=== PATIENT | female | born 1945 | race Caucasian/White ===

== ENCOUNTER 2023-05-31 20:45 | Emergency (ER) | payer MEDICARE, OTHER, SELFPAY ==
[2023-05-31 20:56] VITALS: BP 150/90; PULSE 92; RESP 18; TEMP 36.8; O2SAT 96; BMI 34.7
[2023-05-31] MEDS: ONDANSETRON 4 MG/2 ML INJ IV (21:31)
[2023-05-31 21:35] LABS: Add Manual Diff / Slide Review NO; Basophils Absolute Auto 0 /uL (0-100); Basophils Percent Auto 0.3 % (0-2); Eosinophils Absolute Auto 300 /uL (0-450); Eosinophils Percent Auto 2.8 % (2-4); Hematocrit 45.6 % (36-46); Hemoglobin 15.3 g/dL (12.0-16.0); Lymphocytes Absolute Auto 1800 /uL (1100-4500); Lymphocytes Percent Auto 17.4 % (25-40); Mean Corpuscular HGB Conc 33.5 % (30-36); Mean Corpuscular Hemoglobin 29.9 PG (26-34); Mean Corpuscular Volume 89.2 fL (80-100); Monocytes Absolute Auto 1000 /uL (0-900); Monocytes Percent Auto 9.3 % (3-14); Neutrophils Absolute Auto 7400 /uL (1500-7000); Neutrophils Percent Auto 70.2 % (50-75); Platelet Count 124 X10^3/uL (150-400); Red Blood Cell Count 5.11 X10^6/uL (4.0-5.2); Red Cell Distribution Width 13.4 % (11.6-14.8); White Blood Cell Count 10.5 X10^3/uL (4.5-11.0)
[2023-05-31 21:47] LABS: Lactate (Lactic Acid) 2.1 mmol/L (0.7-2.1)
[2023-05-31 21:49] LABS: Alanine Aminotransferase 29 IU/L (<35); Albumin 4.4 g/dL (3.5-5.0); Albumin Globulin Ratio 1.4 (1.0-2.8); Alkaline Phosphatase 77 U/L (38-126); Aspartate Aminotransferase 46 IU/L (14-36); BUN Creatinine Ratio 29.1 (6-22); Bilirubin Total 0.8 mg/dL (0.2-1.3); Blood Urea Nitrogen 16 mg/dL (7-17); Calcium 10.2 mg/dL (8.4-10.2); Carbon Dioxide 22 mmol/L (22-32); Chloride 108 mmol/L (98-107); Estimated Glomerular Filt Rate > 60 mL/min (>60); Globulin 3.2 g/dL (1.7-4.1); Glucose 123 mg/dL (80-110); HEMOLYSIS 40 (0-50); Lipase 104 U/L (23-300); Potassium 3.7 mmol/L (3.4-5.1); Sodium 138 mmol/L (137-145); Total Protein 7.6 g/dL (6.3-8.2)
[2023-05-31 22:05] LABS: Procalcitonin 0.06 ng/mL (<0.5)
[2023-05-31 22:10] LABS: Bacteria Urine Occasional (0-1); Culture Indicated Urine Specimen Cultured; Mucus Urine 1+ (Negative); RBC Urine 0-1/HPF (0-5/HPF); Squamous Epithelial Cell Urine 1-5 /HPF (0-5/HPF); Urine Volume 10mL (spun); WBC Urine 10-30/HPF (0-5/HPF)
[2023-05-31 23:06] LABS: Reflexed Lactate in 2 Hours Y
--- NOTE | 2023-06-01 01:35 | ED.GENADULT ---
HPI - General Adult General Chief complaint: Dental/Oral Stated complaint: boil on gums/states has Jesus Time Seen by Provider: 05/31/23 21:23 Source: patient Mode of arrival: Ambulatory History of Present Illness HPI narrative: 78-year-old woman with a history of Crohn's disease on immune modulating therapy currently visiting from [facility] presents complaining of general malaise, mild abdominal tenderness, nausea, fevers. She had a dental procedure where the gum was accidentally scraped a couple of days ago and she is concerned that that may be infected. She notes that nausea is not typically part of her Crohn's symptoms. She has not complaining cough, chest pain, palpitations or headache. She presents today looking for reassurance that there is no sign of bacterial infection in light of the skyrisi that she takes for her Crohn's disease. Related Data Allergies Allergy/AdvReac Type Severity Reaction Status Date / Time infliximab [From Remicade] AdvReac Verified 05/31/23 20:55 Review of Systems Review of Systems Narrative: Pertinent positive and negative findings as per HPI Patient History Medical History (Updated 06/01/23 @ 01:50 by Thao Callaway MD) Crohn's disease Social History Smoking Status: Never smoker Smoking Status: Never smoker Substance Use Type: marijuana Exam Initial Vital Signs Initial Vital Signs: Vital Signs Temperature 98.3 F 05/31/23 20:56 Pulse Rate 92 H 05/31/23 20:56 Respiratory Rate 18 05/31/23 20:56 Blood Pressure 150/90 H 05/31/23 20:56 Pulse Oximetry 96 05/31/23 20:56 Oxygen Delivery Method Room Air 05/31/23 20:56 General: Healthy appearing, in no acute distress. Able to give a complete and coherent history. Well-nourished well-developed HEENT: Moist mucous membranes, normal sclera with reactive pupils, looking on the lingual surface left side just behind the lower teeth there is a small area of irritation where it appears the dental dam had been placed. There is no infection Neck: No cervical adenopathy Respiratory: Lungs are clear to auscultation, no wheezing no rales no rhonchi. Full and symmetrical air movement Cardiac: Regular rate and rhythm no murmurs no bruits Abdomen: Soft, mild diffuse tenderness without rebound or guarding. No flank pain Skin: Warm and dry, no rashes Neurologic: Grossly neurologically intact with no obvious asymmetries or abnormalities Extremities: No trauma, well perfused Psych: Cooperative, appropriate insight and affect Course Orders Ordered: ED Orders 05/31/23 21:12 EKG-12 Lead Stat 05/31/23 21:25 Complete Blood Count AUTO DIFF Stat Comprehensive Metabolic Panel Stat Lactate (Lactic Acid) Stat Lipase Stat Procalcitonin Stat 05/31/23 21:37 Urine Culture Stat Urine Microscopic Stat Ondansetron HCl (Ondansetron 4 Mg Odt) 4 mg PO NOW PRN PRN Reason: Nausea And Vomiting Ondansetron HCl (Ondansetron 4 Mg/2 Ml Inj) 4 mg IV NOW PRN PRN Reason: Nausea And Vomiting Last Admin: 05/31/23 21:31 Dose: 4 mg Documented By: MADYSON Vital Signs Vital signs: Vital Signs - 8 hr 05/31/23 20:56 Temperature 98.3 F Pulse Rate 92 H Respiratory Rate 18 Blood Pressure 150/90 H Pulse Oximetry 96 Oxygen Delivery Method Room Air Medical Decision Making Lab Data 05/31/23 21:25 05/31/23 21:25 Labs: Lab Results 05/31/23 05/31/23 Range/Units 21:25 21:37 WBC 10.5 (4.5-11.0) X10^3/uL RBC 5.11 (4.0-5.2) X10^6/uL Hgb 15.3 (12.0-16.0) g/dL Hct 45.6 (36-46) % MCV 89.2 (80-100) fL MCH 29.9 (26-34) PG MCHC 33.5 (30-36) % RDW 13.4 (11.6-14.8) % Plt Count 124 L (150-400) X10^3/uL Neut % (Auto) 70.2 (50-75) % Lymph % (Auto) 17.4 L (25-40) % [place] % (Auto) 9.3 (3-14) % Eos % (Auto) 2.8 (2-4) % Baso % (Auto) 0.3 (0-2) % Neut # (Auto) 7400 H (5459-9532) /uL Lymph # (Auto) 1800 (6933-1202) /uL Porter # (Auto) 1000 H (0-900) /uL Eos # (Auto) 300 (0-450) /uL Baso # (Auto) 0 (0-100) /uL Sodium 138 (137-145) mmol/L Potassium 3.7 (3.4-5.1) mmol/L Chloride 108 H (98-107) mmol/L Carbon Dioxide 22 (22-32) mmol/L BUN 16 (7-17) mg/dL Creatinine 0.55 (0.52-1.04) mg/dL Estimated GFR > 60 (>60) mL/min BUN/Creatinine Ratio 29.1 H (6-22) Glucose 123 H (80-110) mg/dL Lactate 2.1 (0.7-2.1) mmol/L Calcium 10.2 (8.4-10.2) mg/dL Total Bilirubin 0.8 (0.2-1.3) mg/dL AST 46 H (14-36) IU/L ALT 29 (<35) IU/L Alkaline Phosphatase 77 (38-126) U/L Total Protein 7.6 (6.3-8.2) g/dL Albumin 4.4 (3.5-5.0) g/dL Globulin 3.2 (1.7-4.1) g/dL Albumin/Globulin Ratio 1.4 (1.0-2.8) Lipase 104 (23-300) U/L Procalcitonin 0.06 (<0.5) ng/mL Urine RBC 0-1/hpf (0-5/HPF) Urine WBC 10-30/hpf H (0-5/HPF) Ur Squamous Epith Cells 1-5 /hpf (0-5/HPF) Urine Bacteria Occasional (0-1) (None) Urine Mucus 1+ H (Negative) Ur Culture Indicated? Specimen cultured Vol Urine Centrifuged 10ml (spun) Urine Dip Bedside Urine Glucose 1000 mg/dl Bedside Urine Bilirubin - Negative Bedside Urine Ketone - Negative Urine Specific [place] 1.030 Bedside Urine Occult Blood - Negative Bedside Urine pH 6.0 Bedside Urine Protein +/- 15 Bedside Urine Urobilinogen - Negative Bedside Urine Nitrite - Negative Bedside Urine Leukocytes - Negative Esterase Point of care testing: Urine Dip Bedside Urine Glucose 1000 mg/dl Bedside Urine Bilirubin - Negative Bedside Urine Ketone - Negative Urine Specific [place] 1.030 Bedside Urine Occult Blood - Negative Bedside Urine pH 6.0 Bedside Urine Protein +/- 15 Bedside Urine Urobilinogen - Negative Bedside Urine Nitrite - Negative Bedside Urine Leukocytes - Negative Esterase MDM Narrative Medical decision making narrative: CC: Concern for bacterial infection Complicating co-morbidities: History of Crohn's disease, on immune modulating drugs, visiting from out of town Data collected from: patient Differential considered: Viral infection, bacterial infection, Crohn's disease exacerbation, acute surgical abdomen Exam documented above, pertinent findings include: Exam is benign with no evidence of secondary bacterial infection. Her abdomen is not acutely tender Lab Test results independently reviewed as above. Pertinent findings: CBC is unremarkable with no leukocytosis or anemia Chemistries are reassuring. Normal renal function. Lactate was within normal limits Discussion: 78-year-old woman with low-grade temperature, general malaise no signs of bacterial secondary infection. I suspect that this is a viral syndrome however with a mild abdominal pain that she did have we reviewed gallbladder disease, pancreatitis and reasons to return to the emergency department. Clearly reviewed all of her labs with her, questions are answered and she is safe for discharge Discharge Plan Departure Patient Disposition: Home Clinical Impression: Abdominal pain Qualifiers: Abdominal location: generalized Qualified Code(s): R10.84 - Generalized abdominal pain Instructions: DI for Abdominal Pain-Adult Activity Restrictions/Additional Instructions: Thank you for coming in today There is no evidence of bacterial infection with your clinical exam and your blood work today. You may be coming down with a mild virus. You do not have an abdomen tender enough that I am concerned that we need to do additional imaging or talk with a surgeon. The abraded area on the inside of your teeth appears to be healing nicely and does not show any signs of infection I would recommend a bit more time, rest, Tylenol as needed and if you feel that you are getting worse it would be very appropriate to return to the ER Stand Alone Forms: Patient Portal/API
[2023-06-01 01:37] LABS: Lactate 2HR (Lactic Acid Rflx) 1.8 mmol/L (0.7-2.1)
[2023-06-01 01:50] VITALS: BP 122/70; PULSE 86; RESP 18; O2SAT 93
== END 2023-06-01 02:05 | disposition home or self-care (01) ==
PROVIDERS: Emergency Provider Emergency Medicine
DX: R10.84 Generalized abdominal pain (principal)
CPT/HCPCS: 36415; 80053; 81003; 81015; 83605; 83690; 84145; 85025; 87086; 96374; 99284; J2405